=== PATIENT | female | born 1940 | race Caucasian/White ===

== ENCOUNTER 2021-07-03 12:18 | Observation (INO) | payer MEDICARE, OTHER ==
[2021-07-03 13:07] LABS: PTT,PARTIAL THROMBOPLSTIN TIME 39.7 SEC (25.6-32.8)
[2021-07-03 13:09] LABS: CHLORIDE,CL 103 mmol/L (98-107); SODIUM,NA 139 mmol/L (136-145)
[2021-07-03] MEDS ORDERED: Phytonadione 5 MG Tab PO ONE (14:28)
[2021-07-03] MEDS ORDERED: Lidocaine 2% Jelly 5 ML Tube MUCMEM ONE (16:04)
[2021-07-03] MEDS ORDERED: Acetaminophen 500 MG Tab PO PRN (17:39)
[2021-07-03] MEDS ORDERED: HYDROmorphone 0.5 MG/0.5 ML Syringe IV PRN (19:54)
[2021-07-03] MEDS ORDERED: Rosuvastatin 20 MG Tab PO SCH (20:00)
[2021-07-03 20:28] LABS: PTT,PARTIAL THROMBOPLSTIN TIME 44.8 SEC (25.6-32.8)
[2021-07-03] MEDS: oxyCODONE 5 MG Tab PO PRN (20:47)
[2021-07-03] MEDS: Carvedilol 25 MG Tab PO SCH (20:48)
[2021-07-03] MEDS: Sodium Chloride 0.9% 10 ML Syringe FLUSH PRN (20:49)
[2021-07-03] MEDS ORDERED: Furosemide 20 MG/2 ML VIAL IV ONE (22:03)
[2021-07-03] MEDS ORDERED: Lidocaine 2% with EPINEPHrine 1:100,000 20 ML MDV INJECT ONE (23:30)
[2021-07-03] MEDS ORDERED: fentaNYL 25 MCG/HR Transdermal Patch TRDERM STA (23:55)
[2021-07-04] MEDS ORDERED: Furosemide 20 MG/2 ML VIAL IV ONE (03:12)
[2021-07-04 07:30] LABS: PTT,PARTIAL THROMBOPLSTIN TIME 33.4 SEC (25.6-32.8)
[2021-07-04] MEDS ORDERED: Glimepiride 2 MG Tab PO SCH (08:00)
[2021-07-04] MEDS ORDERED: Magnesium Oxide 400 MG Tab PO SCH (08:00)
[2021-07-04] MEDS ORDERED: Levothyroxine 100 MCG Tab PO SCH (08:00)
[2021-07-04] MEDS: HYDROmorphone 0.5 MG/0.5 ML Syringe IV PRN ×2 (08:06→12:34)
[2021-07-04] MEDS ORDERED: Phytonadione 5 MG Tab PO ONE (08:09)
[2021-07-04] MEDS: Carvedilol 25 MG Tab PO SCH (08:10)
[2021-07-04] MEDS ORDERED: VALSARTAN PO SCH (09:00)
[2021-07-04] MEDS ORDERED: SACUBITRIL PO SCH (09:00)
[2021-07-04] MEDS: oxyCODONE 5 MG Tab PO PRN (10:30)
[2021-07-04] MEDS: Sodium Chloride 0.9% 10 ML Syringe FLUSH PRN (12:35)
[2021-07-04 13:15] VITALS: PULSE 60
[2021-07-04 14:52] VITALS: BP 113/51
[2021-07-05] MEDS ORDERED: Digoxin 125 MCG Tab PO SCH (08:00)
[2021-07-05] MEDS ORDERED: fentaNYL 25 MCG/HR Transdermal Patch TRDERM SCH (08:00)
== END 2021-07-04 17:18 | disposition home or self-care (01) ==
LOC: VM.ED 12:18 → VM.MS 15:56
PROVIDERS: ADMIT Nurse Practitioner Family; ATTEND Nurse Practitioner Family
DX: N93.9 Abnormal uterine and vaginal bleeding, unspecified (principal); D62 Acute posthemorrhagic anemia; D61.818 Other pancytopenia; N18.4 Chronic kidney disease, stage 4 (severe); I50.43 Acute on chronic combined systolic (congestive) and diastolic (congestive) heart failure; I13.0 Hypertensive heart and chronic kidney disease with heart failure and stage 1 through stage 4 chronic kidney disease, or unspecified chronic kidney disease; I48.20 Chronic atrial fibrillation, unspecified; G89.4 Chronic pain syndrome; C51.9 Malignant neoplasm of vulva, unspecified; I48.91 Unspecified atrial fibrillation; E11.22 Type 2 diabetes mellitus with diabetic chronic kidney disease; E03.9 Hypothyroidism, unspecified; E78.5 Hyperlipidemia, unspecified; Z20.822 Contact with and (suspected) exposure to COVID-19; Z88.5 Allergy status to narcotic agent; Z79.899 Other long term (current) drug therapy; Z79.84 Long term (current) use of oral hypoglycemic drugs; Z98.890 Other specified postprocedural states; Z79.01 Long term (current) use of anticoagulants
CPT/HCPCS: 36415; 36430; 80053; 82947; 83605; 85018; 85025; 85610; 85730; 86140; 86850; 86900; 86901; 86920; 86922; A9270; J1170; J1940; P9016; P9017; U0002; 96374; 96375; 96376; 99217; 99220; 99285; G0378

== ENCOUNTER 2022-02-12 22:31 | Observation (INO) | payer MEDICARE, OTHER ==
[2022-02-12] MEDS ORDERED: Sodium Chloride 0.9% 10 ML Syringe FLUSH PRN ×2 (23:03→23:13)
[2022-02-12] MEDS ORDERED: Furosemide 40 MG/4 ML VIAL IV ONE (23:28)
[2022-02-12 23:54] LABS: PTT,PARTIAL THROMBOPLSTIN TIME 45.4 SEC (20.5-30.9)
[2022-02-12] MEDS ORDERED: cefTRIAXone 2 GM Vial IVPUSH ONE (23:57)
[2022-02-13 00:04] LABS: ANION GAP 14.5 mmol/L (5-15); CHLORIDE,CL 99 mmol/L (98-107); ESTIMATED GFR 33 mL/min (>=60); SODIUM,NA 135 mmol/L (136-145)
[2022-02-13 00:12] LABS: CORONAVIRUS COVID-19 NAA NEGATIVE (NEGATIVE); RESPIRATORY SYNCYTIAL VIR NAA NEGATIVE (NEGATIVE)
[2022-02-13] MEDS ORDERED: Benzonatate 100 MG Cap PO PRN (02:45)
[2022-02-13] MEDS: Doxycycline 100 MG Cap PO SCH ×2 (03:06→09:53)
[2022-02-13 09:05] VITALS: BP 126/48; PULSE 65
[2022-02-13] MEDS ORDERED: Furosemide 40 MG/4 ML VIAL IV ONE (09:46)
[2022-02-13] MEDS ORDERED: Doxycycline 100 MG Cap PO ONE (10:43)
== END 2022-02-13 11:50 | disposition home or self-care (01) ==
LOC: VM.ED 22:31 → VM.MS 02-13 00:16
PROVIDERS: ADMIT Physician Assistant; ATTEND Physician Assistant
DX: I13.0 Hypertensive heart and chronic kidney disease with heart failure and stage 1 through stage 4 chronic kidney disease, or unspecified chronic kidney disease (principal); I50.40 Unspecified combined systolic (congestive) and diastolic (congestive) heart failure; N18.30 Chronic kidney disease, stage 3 unspecified; E11.22 Type 2 diabetes mellitus with diabetic chronic kidney disease; D63.1 Anemia in chronic kidney disease; J18.9 Pneumonia, unspecified organism; I08.1 Rheumatic disorders of both mitral and tricuspid valves; E03.9 Hypothyroidism, unspecified; M81.0 Age-related osteoporosis without current pathological fracture; I48.91 Unspecified atrial fibrillation; I25.10 Atherosclerotic heart disease of native coronary artery without angina pectoris; Z88.6 Allergy status to analgesic agent; Z79.84 Long term (current) use of oral hypoglycemic drugs; Z79.01 Long term (current) use of anticoagulants; Z79.899 Other long term (current) drug therapy; Z79.83 Long term (current) use of bisphosphonates; Z79.811 Long term (current) use of aromatase inhibitors; Z79.891 Long term (current) use of opiate analgesic; Z79.890 Hormone replacement therapy; Z20.822 Contact with and (suspected) exposure to COVID-19
CPT/HCPCS: 0241U; 36415; 71045; 80053; 83605; 83735; 83880; 84484; 85025; 85610; 85730; 86140; 87040; 93005; 96374; 96375; 96376; 99285; A9270; G0378; J0696; J1940; 93010; 99217; 99220

== ENCOUNTER 2022-02-26 19:27 | Emergency (ER) | payer MEDICARE, OTHER ==
[2022-02-27 05:05] VITALS: BP 114/78; PULSE 67
== END 2022-02-26 20:50 | disposition home or self-care (01) ==
LOC: VM.ED 19:27
DX: R04.1 Hemorrhage from throat (principal); I13.0 Hypertensive heart and chronic kidney disease with heart failure and stage 1 through stage 4 chronic kidney disease, or unspecified chronic kidney disease; I50.9 Heart failure, unspecified; N18.30 Chronic kidney disease, stage 3 unspecified; I25.10 Atherosclerotic heart disease of native coronary artery without angina pectoris; E11.9 Type 2 diabetes mellitus without complications; Z79.899 Other long term (current) drug therapy; Z88.6 Allergy status to analgesic agent; Z79.01 Long term (current) use of anticoagulants
CPT/HCPCS: 36415; 85025; 85610; 99284

== ENCOUNTER 2022-03-21 06:20 | Emergency (ER) | payer MEDICARE, OTHER ==
[2022-03-21 07:42] LABS: CHLORIDE,CL 103 mmol/L (98-107); ESTIMATED GFR 24 mL/min (>=60); SODIUM,NA 137 mmol/L (136-145)
[2022-03-21] MEDS: Sodium Chloride 0.9% 500 ML IV ONE (07:57)
[2022-03-21] MEDS: Pantoprazole 40 MG Vial IVPUSH ONE (07:57)
[2022-03-21] MEDS: Pantoprazole 40 MG in Sodium Chloride 0.9% 100 ML IV SCH (09:20)
[2022-03-21 10:19] LABS: CORONAVIRUS COVID-19 NAA NEGATIVE (NEGATIVE); RESPIRATORY SYNCYTIAL VIR NAA NEGATIVE (NEGATIVE)
[2022-03-21] MEDS: fentaNYL 50 MCG/ML SDV IVPUSH ONE (10:21)
[2022-03-21] MEDS ORDERED: metroNIDAZOLE/Normal Saline 500 MG in Premix Bag 1 BAG IV ONE (10:31)
[2022-03-21] MEDS: cefTRIAXone 2 GM Vial IVPUSH ONE (10:54)
[2022-03-21 11:31] VITALS: BP 119/61; PULSE 80
== END 2022-03-21 11:30 | disposition short-term general hospital (02) ==
LOC: VM.ED 06:20
DX: K92.2 Gastrointestinal hemorrhage, unspecified (principal); D64.89 Other specified anemias; I13.0 Hypertensive heart and chronic kidney disease with heart failure and stage 1 through stage 4 chronic kidney disease, or unspecified chronic kidney disease; I50.9 Heart failure, unspecified; N18.30 Chronic kidney disease, stage 3 unspecified; I25.10 Atherosclerotic heart disease of native coronary artery without angina pectoris; E11.9 Type 2 diabetes mellitus without complications; Z88.6 Allergy status to analgesic agent; Z79.899 Other long term (current) drug therapy; Z79.01 Long term (current) use of anticoagulants; Z20.822 Contact with and (suspected) exposure to COVID-19
CPT/HCPCS: 0241U; 36415; 36430; 74176; 80053; 83605; 83735; 84484; 85025; 85610; 85730; 86850; 86900; 86901; 86920; 86922; 96361; 96372; 96374; 96375; 96376; 99284; 99285-25; C9113; J0696; J3010; J3430; J7030; P9016